=== PATIENT | male | born 1985 | race Caucasian/White ===

== ENCOUNTER 2018-04-14 15:44 | Emergency (ER) | payer BC ==
[2018-04-14] MEDS ORDERED: Diphtheria,Pertussis(Acell),Tetanus Vaccine 0.5 ML SDV IM ONE (16:03)
--- NOTE | 2018-04-14 16:11 | EDM.PDOC ---
ED HPI GENERAL MEDICAL PROBLEM - General Chief Complaint: Head Injury Stated Complaint: HEAD INJURY Time Seen by Provider: 04/14/18 16:03 Source of Information: Reports: Patient History Limitations: Reports: No Limitations - History of Present Illness INITIAL COMMENTS - FREE TEXT/NARRATIVE: 32-year-old male attends the ED after being struck in the occipital aspect of his head by falling object. This object was a argon or mercury vapor light is to let up a yard. These tend to be very heavy weighing upwards of 60-80 pounds. They removing the pole and it simply came off the portal falling and striking him in the head. He reports no loss of consciousness. No visual acuity changes. Denies any neck pain or any other pain. He has suffered a jagged laceration across 6 septal scalp which may 3 cm in size. Last tetanus toxoid is unknown. Patient denies any other injuries. Trauma minor was called on this patient. Onset: Today Onset Date: 04/14/18 Onset Time: 15:30 Duration: Minutes: Location: Reports: Head (Injury to the supple aspect of his scalp.) Quality: Reports: Ache Severity: Moderate Improves with: Reports: None Worsens with: Reports: None Context: Reports: Trauma (Struck by a falling object about 20 feet above his head.). Denies: Activity, Exercise, Lifting, Sick Contact Associated Symptoms: Reports: No Other Symptoms. Denies: Confusion, Chest Pain , Cough, cough w sputum, Diaphoresis, Fever/Chills, Headaches, Loss of Appetite , Malaise, Nausea/Vomiting, Rash, Seizure, Shortness of Breath Treatments CLINICAL DIETITIAN: Reports: Other (see below) (None.) - Related Data Allergies Allergy/AdvReac Type Severity Reaction Status Date / Time No Known Allergies Allergy Verified 04/14/18 15:52 Home Meds: Home Meds . [No Known Home Meds] 04/14/18 [History] Past Medical History - Past Health History Medical/Surgical History: Denies Medical/Surgical History Social & Family History - Family History Family Medical History: Noncontributory - Tobacco Use Smoking Status *Q: Never Smoker - Recreational Drug Use Recreational Drug Use: No - Living Situation & Occupation Living situation: Reports: Occupation: Employed (Works as a chiropractor.) ED ROS GENERAL - Review of Systems Review Of Systems: See Below Constitutional: Reports: No Symptoms HEENT: Reports: No Symptoms Respiratory: Reports: No Symptoms Cardiovascular: Reports: No Symptoms Endocrine: Reports: No Symptoms GI/Abdominal: Reports: No Symptoms : Reports: No Symptoms Musculoskeletal: Reports: No Symptoms Skin: Reports: No Symptoms Neurological: Reports: No Symptoms Psychiatric: Reports: No Symptoms Hematologic/Lymphatic: Reports: No Symptoms Immunologic: Reports: No Symptoms ED EXAM, HEAD INJURY - Physical Exam Exam: See Below Exam Limited By: No Limitations General Appearance: Alert, WD/WN, No Apparent Distress Head: Scalp Lacerations (Has a 3+ centimeter laceration across the mid occipital scalp. Wound is not actively bleeding.), Scalp Hematoma (Small surrounding scalp hematoma occipital scalp.) Nexus Criteria: No: Posterior, Midline Cervical Tenderness, Evidence of Intoxication, Altered Level of Consciousness, Focal Neurological Deficit, Painful Distraction Injuries Eyes: Bilateral Eye: Normal Inspection Throat/Mouth: Normal Inspection, Normal Lips, Normal Teeth, Normal Oropharynx, Other Neck: Non-Tender, Full Range of Motion (No bites to his tongue.), Normal Alignment, Normal Inspection, Other Respiratory: No Respiratory Distress (Full unrestricted range of motion without any pain), Lungs Clear, Normal Breath Sounds, Other (No evidence of thoracic or chest wall trauma.) Extremities: Normal Inspection, Normal Range of Motion, Non-Tender, No Pedal Edema Neurologic: No Motor/Sensory Deficits, Alert, Normal Mood/Affect, Oriented x 3 Skin: Normal Color, Warm/Dry - [place] Coma Score Best Eye Response ([place]): (4) Open Spontaneously Best Verbal Response ([place]): (5) Oriented Best Motor Response (Derek): (6) Obeys Commands Derek Total: 15 ED LACERATION/WOUND & STEF PROC - Laceration/Wound Repair Middle Head Lac/wound length in cm: 2.5 Appearance: Subcutaneous (Midline occipital scalp), Clean Distal NVT: Neuro & Vascular Intact Local Anesthesia - Lidocaine (Xylocaine): 1% Plain Local Anesthetic Volume: 3cc Skin Prep: Saline Closed with: Sutures Suture Size: 4-0 # of Sutures: 5 Suture Type: Prolene Course - Vital Signs Last Recorded V/S: Last Vital Signs Temp 36.6 C 04/14/18 16:16 Pulse 77 04/14/18 16:16 Resp 18 04/14/18 16:16 BP 113/81 04/14/18 16:16 Pulse Ox 97 04/14/18 16:16 - Orders/Labs/Meds Orders: Active Orders 24 hr Category Date Time Status Vaccines to be Administered [RC] PER UNIT ROUTINE Care 04/14/18 16:03 Active Meds: Medications Discontinued Medications Generic Name Dose Route Start Last Admin Trade Name Chavez PRN Reason Stop Dose Admin Diphtheria/Tetanus/Acell Pertussis 0.5 ml 04/14/18 16:03 04/14/18 16:12 Adacel IM 04/14/18 16:04 0.5 ml .ONCE ONE Administration Lidocaine HCl 10 ml 04/14/18 16:32 04/14/18 16:45 Xylocaine 1% INJECT 04/14/18 16:33 Not Given ONETIME ONE Lidocaine HCl 50 ml 04/14/18 16:44 04/14/18 16:46 Xylocaine 1% INJECT 04/14/18 16:45 50 ml ONETIME ONE Administration - Radiology Interpretation Free Text/Narrative:: 32-year-old male attends the ED after being struck in the occipital aspect of the scalp by a falling object. Him and other family members were moving a yard light. Light unfortunately fell off the pole while the removing it and came down striking him in the back of the head. He did not lose consciousness. He suffered a 3 cm laceration across the mid aspect of his occipital scalp. Neurologically he is intact. There is no evidence of any cervical neck pain and therefore must been more of a glancing blow with a sharp edge. At any rate he will have CT head performed but CT neck is not indicated. He has no other injuries other than the laceration occipital scalp that will require suture. Prior. His tetanus diphtheria and pertussis vaccine will be updated today since its been about 10 years since the last vaccination. - Re-Assessments/Exams Free Text/Narrative Re-Assessment/Exam: 04/14/18 16:33 CT head is within normal limits. Does show a laceration occipital scalp down to the [place]. No skull fractures are evident. Plan Will proceed with wound repair using 4-0 Prolene suture and 1% lidocaine for anesthetic. 04/14/18 17:05 laceration repaired using 4-0 Prolene suture 5 sutures total. Patient tolerated procedure very well. Sutures will need to be removed in 10 days' time. Departure - Departure Time of Disposition: 17:02 Disposition: Home, Self-Care 01 Condition: Fair Clinical Impression: Laceration of scalp Qualifiers: Encounter type: initial encounter Qualified Code(s): S01.01XA - Laceration without foreign body of scalp, initial encounter - Discharge Information Referrals: Freddy Brower MD [Primary Care Provider] - Forms: ED Department Discharge Additional Instructions: Evaluation the emergency room today in regards to injury to the occipital aspect of her scalp from a falling object. He suffered a 2.5 cm laceration across the occipital scalp which was cleansed and then sutured under local anesthetic. CT of the head proved to be negative for any intracranial bleeding or fractures of the skull. No apparent injuries to your neck or any other body parts on examination. Tetanus diphtheria and pertussis vaccine was updated today and her good for the next 10 years. Treatment of the wound is to daily cleanse the area with soap and water. Showering is okay. Shampoo is okay as well. May apply topical antibiotic such as bacitracin or Polysporin to the wound at least once daily. Sutures need to be removed in 10 days' time. Follow- up is only indicated if you have any signs of wound infection developing such as redness, swelling or increased pain or pus. - My Orders Last 24 Hours: My Active Orders 04/14/18 16:03 Vaccines to be Administered [RC] PER UNIT ROUTINE - Assessment/Plan Last 24 Hours: My Active Orders 04/14/18 16:03 Vaccines to be Administered [RC] PER UNIT ROUTINE
[2018-04-14] MEDS ORDERED: Lidocaine 1% 10 ML MDV INJECT ONE (16:32)
--- NOTE | 2018-04-14 16:41 | CT ---
Head CT Technique: Multiple axial sections through the brain were obtained. Intravenous contrast was not utilized. Comparison: No previous intracranial imaging is available. Findings: Ventricles along with basal cisterns and sulci over the convexities are within normal limits for the patient's age. No abnormal parenchymal densities are seen. No evidence of intracranial hemorrhage. No midline shift or mass effect is seen. Bone window settings were reviewed which shows the visualized sinuses to appear clear. No acute calvarial abnormality is identified. Impression: 1. No acute intracranial abnormality is identified on noncontrast head CT study. Diagnostic code #1
[2018-04-14] MEDS ORDERED: Lidocaine 1% 50 ML MDV INJECT ONE (16:44)
== END 2018-04-14 17:08 | disposition home or self-care (01) ==
LOC: JD.ED 15:44
DX: S01.01XA Laceration without foreign body of scalp, initial encounter (principal); Z23 Encounter for immunization; W20.8XXA Other cause of strike by thrown, projected or falling object, initial encounter
CPT/HCPCS: 12001; 70450; 70450-26; 90471; 90715; 99283; 99284-25